=== PATIENT | female | born 1995 | race Caucasian/White ===

== ENCOUNTER 2018-04-11 02:14 | Inpatient (IN) | payer BC ==
[2018-04-11] MEDS ORDERED: SODIUM CHLORIDE 0.9% 1,000 ML IV ONE (02:26)
[2018-04-11] MEDS ORDERED: ACETAMINOPHEN TAB 500 MG TAB PO STA (02:26)
[2018-04-11] MEDS ORDERED: NALOXONE 0.4 MG/ML 1 ML VIAL IV PRN (02:52)
[2018-04-11] MEDS ORDERED: AZITHROMYCIN 500 MG in SODIUM CHLORIDE 0.9% 250 ML IVPB STA (02:56)
[2018-04-11] MEDS: ACETAMINOPHEN TAB 325 MG TAB PO PRN ×3 (03:01→17:16)
--- NOTE | 2018-04-11 03:01 | ED ---
General Adult HPI - General Chief complaint: Chest Pain Stated complaint: Chest pain Time Seen by Provider: 04/11/18 02:16 Source: patient, RN notes reviewed, old records reviewed Mode of arrival: EMS Limitations: no limitations - History of Present Illness Initial comments: 22-year-old female transferred from [place] with left-sided chest pain and dyspnea. Patient states that she developed the symptoms earlier in the day. Describes the pain is sharp in nature. She does have remote history of exercise -induced asthma. No other significant health history. She has a family history of a brother with a abnormal heart valve requiring replacement. Patient denies cough. She denies URI symptoms. She has had subjective fever and chills. No nausea vomiting or diarrhea. No dysuria. - Related Data Allergies Allergy/AdvReac Type Severity Reaction Status Date / Time No Known Allergies Allergy Verified 04/11/18 02:22 Review of Systems ROS Statement: Those systems with pertinent positive or pertinent negative responses have been documented in the HPI. ROS Other: All systems not noted in ROS Statement are negative. Past Medical History Additional Past Medical History / Comment(s): seasonal allergies. History of Any Multi-Drug Resistant Organisms: None Reported Past Surgical History: No Surgical Hx Reported Past Psychological History: No Psychological Hx Reported Smoking Status: Never smoker Past Alcohol Use History: None Reported Past Drug Use History: None Reported General Exam Limitations: no limitations General appearance: alert, in no apparent distress Head exam: Present: atraumatic, normocephalic Eye exam: Present: normal appearance, PERRL, EOMI ENT exam: Present: normal exam Neck exam: Present: normal inspection. Absent: tenderness, meningismus Respiratory exam: Present: normal lung sounds bilaterally. Absent: respiratory distress, wheezes Cardiovascular Exam: Present: normal rhythm, tachycardia GI/Abdominal exam: Present: soft. Absent: distended, tenderness Extremities exam: Present: normal inspection, normal capillary refill. Absent: pedal edema, calf tenderness Neurological exam: Present: alert, oriented X3, CN II-XII intact. Absent: motor sensory deficit Psychiatric exam: Present: normal affect, normal mood Skin exam: Present: warm, dry, intact. Absent: cyanosis, diaphoretic Course Vital Signs 04/11/18 02:16 Temperature 102.3 F H Pulse Rate 121 H Respiratory 28 H Rate Blood Pressure 127/60 O2 Sat by Pulse 95 Oximetry EKG Findings - EKG Comments: EKG Findings:: EKG: Sinus tachycardia, possible left atrial enlargement, RSR prime suggestive of right ventricular conduction delay. Rate of 121 ND interval 142, QRS duration 90, QTC 468 Medical Decision Making - Medical Decision Making 22-year-old female transferred for chest pain. This may be related to infectious process, although chest x-ray and CT is negative for focal pneumonia. Blood cultures and urine culture were obtained prior to transfer. Patient was given Rocephin. A azithromycin will be given in the emergency department. Laboratory studies were reviewed, she had an elevated white blood cell count at 13.8, hemoglobin was 14.3 which is stable. CTA showed no central PE, although there was suboptimal contrast and peripheral PE has not been evaluated. Electrolytes are within normal limits. Echo will be obtained. Case discussed with Dr. Sanchez who will accept admission. Repeat laboratory studies are pending. Disposition Clinical Impression: SIRS (systemic inflammatory response syndrome), Chest pain Disposition: ADMITTED IP TO THIS HOSP Condition: Stable Is patient prescribed a controlled substance at d/c from ED?: No Referrals: Nithin Torres MD [Primary Care Provider] - 1-2 days Decision to Admit Reason: Admit from EC Decision Date: 04/11/18 Decision Time: 03:10
[2018-04-11] MEDS: 0.9% NACL WITH KCL 20 MEQ/L 1,000 ML IV SCH ×2 (03:40→18:48)
[2018-04-11] MEDS ORDERED: HYDROcodone/APAP 5-325MG 1 EACH TAB PO PRN (03:56)
[2018-04-11] MEDS ORDERED: ONDANSETRON 4 MG/2 ML VIAL IVP PRN (03:56)
[2018-04-11] MEDS ORDERED: MELATONIN 3 MG TABLET PO PRN (03:56)
[2018-04-11] MEDS ORDERED: MORPHINE ORAL SOLN 10 MG/5 ML CUP PO PRN (03:56)
[2018-04-11] MEDS ORDERED: CALCIUM CARBONATE 500 MG CHEWABLE PO PRN (03:56)
--- NOTE | 2018-04-11 04:07 | P.HPIM ---
History of Present Illness H&P Date: 04/11/18 Chief Complaint: chest pain Patient is a 22-year-old female past medical history of nasal ALLERGIES and childhood exercise-induced asthma who initially presented to [facility] after experiencing sudden onset of left-sided chest pain. At [facility] underwent an extensive evaluation. Initially on arrival her vital signs were within normal limits other than a pulse of 102. During evaluation there she did spike a fever 102. Her initial EKG showed sinus tachycardia at rate of 110 with RSR prime in V1 and V2. Initial laboratory analysis showed a white blood cell count of 13.8, hemoglobin 14.3, hematocrit 42.1, platelets of 363. Her chemistry showed sodium of 133, potassium 4, chloride of 101, CO2 of 24 Bielen of 11, and creatinine 0.9. Her liver enzymes are within normal limits. D-dimer was positive at 418. Initial troponin and CPK were negative. Urinalysis showed ketones and white blood cells 25-50. She underwent a CTA of the chest which was a suboptimal bolus to evaluate for peripheral PE but was otherwise unremarkable. She got a dose of IV Toradol and Xopenex which are resolved her abdominal pain and eased her chest pain. She then received 4 of morphine 324 mg of aspirin and a GI cocktail but continued to have pain. She has a history of a brother with congenital aortic stenosis requiring 3 aortic valve replacement. There is concern for possible cardiac etiology and they requested transfer here. Arrival [facility] [place] she is on have a temperature of 102.3 with a pulse of 121 and respirations of 28. EKG was repeated which showed sinus tachycardia at a rate of 121 and then with an RSR prime. Patient seen and examined at bedside in the ER. She states that she was sitting at the wrist fails this afternoon developed sudden onset left-sided chest pain that radiated to the [facility] chest. This was associated with shortness of breath, nausea, and palpitations. She felt cold all over but did not become diaphoretic. She does not feel lightheaded, she had no numbness or tingling. She has been suffering from a stuffy nose. She also is having menstrual cramps this afternoon which resolved after receiving Toradol at [place]. She is on her menstrual cycle. She denies anything unusual such as moving heavy objects or starting a new exercise regimen. She has not started or stopped taking any medications recently. She reports a headache that started after arriving to the ER. She's had no recent sick contacts. She has had increased urination but no dysuria. She states she did have an episode of chest pain in November and sought medical attention in [place] where she goes to school. At that time she had an EKG which was normal. She denies any vomiting, diarrhea, constipation. She is not coughing. She denies any unusual rashes or lesions. Her chest pain is reproducible with palpation to the anterior chest wall. Patient reports that they are renovating her kitchen at home. They have been dry walling and sanding the last few days.There has been no exposure to meldew or mold as they have not torn down old structures. Review of Systems Positive: + Chest pain, + shortness of breath, + nausea, + palpitations Pertinent positives and negatives as discussed in HPI, a complete review of systems was performed and all other systems are negative. Past Medical History Additional Past Medical History / Comment(s): seasonal allergies. Childhood exercise induced asthma History of Any Multi-Drug Resistant Organisms: None Reported Past Surgical History: No Surgical Hx Reported Past Psychological History: No Psychological Hx Reported Smoking Status: Never smoker Past Alcohol Use History: None Reported Past Drug Use History: None Reported - Past Family History Brother(s) Additional Family Medical History / Comment(s): congential aortic stenosis with aortic valve replacement X 3 Father Family Medical History: Diabetes Mellitus Medications and Allergies Allergies Allergy/AdvReac Type Severity Reaction Status Date / Time No Known Allergies Allergy Verified 04/11/18 02:22 Physical Exam Osteopathic Statement: *. No significant issues noted on an osteopathic structural exam other than those noted in the History and Physical/Consult. Vitals: Vital Signs Temp Pulse Resp BP Pulse Ox 04/11/18 03:43 100.9 F H 103 H 20 95/55 96 04/11/18 02:16 102.3 F H 121 H 28 H 127/60 95 Intake and Output 04/10/18 04/10/18 04/11/18 14:59 22:59 06:59 Other: Weight 65.771 kg General: Ill appearing, mild distress, appears at stated age, normal weight Derm: no unusual rashes/lesions no unusual ecchymoses, warm, moist Head: atraumatic, normocephalic, symmetric Eyes: EOMI, no lid lag, anicteric sclera, pupils equal round reactive to light ENT: Nose and ears atraumatic, no thrush, no pharyngeal erythema Neck: No thyromegaly, no cervical lymphadenopathy, trachea midline, supple Mouth: no lip lesion, mucus membranes moist Cardiovascular: S1 and S2 tachycardic, no murmur, positive posterior tibial pulse bilateral, no edema, capillary refill less than 2 seconds Lungs: Decreased breath sounds bilaterally, no wheeze, no rhonchi, no rales , no accessory muscle use Abdominal: soft, nontender to palpation, no guarding, no appreciable organomegaly, normal bowel sounds Ext: no gross muscle atrophy, muscle strength 5 out of 5 in upper extremities grossly, grossly intact in lower extremities, no contractures, Neuro: CN II-XI grossly intact, light touch intact all 4 extremities, finger to nose within normal limits, Psych: Alert, oriented, appropriate affect Results Comments: EKG is reviewed by myself revealed sinus tachycardia at a rate of 121, normal access, WA of 142, QRS 90, QTc of 468 she does have an RSR prime in V1 and V2 and aVL, there is nonspecific ST-T wave changes. CT scan - chest: report reviewed Thrombosis Risk Factor Assmnt - DVT/VTE Prophylaxis DVT/VTE Prophylaxis: Low risk, early ambulation encouraged Assessment and Plan Assessment: Systemic inflammatory response syndrome-fever 102.3, heart rate 121, respiratory rate 28 -Repeat urinalysis -Repeat blood cultures, inital set drawn before ABX at [facility] -IV fluids -CT chest without definitive source -Warrants monitoring for development of sepsis, concern for possible viral infection including pericarditis, myocarditis, influenza, URI - Repeat CXR in am after fluids to rule out pneumonia, received 1 gram of rocephin ([facility]) and zithromax in the ED Chest pain - likely costochondiritis, however with family history of congenital aortic stenosis and abnormal EKG warrants monitoring - echo in AM - cardio consult - I do not see an indication to emergently repeat CTA of chest but if further work-up for PE is warrented could consider echo + venous dopplers +/- VQ scan. Wells criteria 1.5 seasonal allergies - claritin Surrogate decision-maker: Mother CODE STATUS:Full DVT prophylaxis: early ambulation Discussed with: Patient, family, ED physician Anticipated discharge: 24-[address]: home A total of 65 minutes was spent on the care of this complex patient more than 50 % of the time was spent in counseling and care coordination.
[2018-04-11 04:21] VITALS: BMI 22.4
[2018-04-11 05:06] LABS: Appearance,Urine Clear (Clear); Bilirubin,Urine Negative (Negative); Blood,Urine Trace (Negative); Color,Urine Yellow; Glucose,Urine (UA) Negative (Negative); Ketones,Urine 2+ (Negative); Leukocyte Esterase,Urine Moderate (Negative); Nitrite,Urine Negative (Negative); Protein,Urine Trace (Negative); RBC,Urine 3 /hpf (0-5); Specific Gravity,Urine >1.050 (1.001-1.035); Squamous Epithelial Cell,Urine 2 /hpf (0-4); Urobilinogen,Urine <2.0 mg/dL (<2.0); WBC,Urine 18 /hpf (0-5)
[2018-04-11 05:16] LABS: Basophils % (A) 0 %; Eosinophils # (A) 0.2 k/uL (0-0.7); Eosinophils % (A) 2 %; HCT 30.2 % (34.0-46.0); HGB 10.1 gm/dL (11.4-16.0); Lymphocytes # (A) 0.9 k/uL (1.0-4.8); Lymphocytes % (A) 6 %; MCH 27.9 pg (25.0-35.0); MCHC 33.5 g/dL (31.0-37.0); MCV 83.5 fL (80.0-100.0); Mean Platelet Volume 6.5; Monocytes # (A) 0.5 k/uL (0-1.0); Monocytes % (A) 4 %; Neutrophils # (A) 12.3 k/uL (1.3-7.7); Neutrophils % (A) 88 %; Platelet Count 220 k/uL (150-450); RBC 3.62 m/uL (3.80-5.40); RDW 12.8 % (11.5-15.5)
[2018-04-11 05:24] LABS: ALT 26 U/L (9-52); AST 12 U/L (14-36); Albumin 2.8 g/dL (3.5-5.0); Alkaline Phosphatase 50 U/L (38-126); Anion Gap 12 mmol/L; Blood Urea Nitrogen 10 mg/dL (7-17); Carbon Dioxide 18 mmol/L (22-30); Chloride 108 mmol/L (98-107); Glucose 79 mg/dL (74-99); Potassium 3.7 mmol/L (3.5-5.1); Sodium 138 mmol/L (137-145); Total Bilirubin 0.5 mg/dL (0.2-1.3); Total Protein 5.4 g/dL (6.3-8.2)
--- NOTE | 2018-04-11 10:30 | XR ---
EXAMINATION TYPE: XR chest 1V portable DATE OF EXAM: 04/11/2018 COMPARISON: CT chest 04/10/2018 HISTORY: Pneumonia TECHNIQUE: Single frontal view of the chest is obtained. FINDINGS: There is no focal air space opacity, pleural effusion, or pneumothorax seen. The cardiac silhouette size is within normal limits. There are overlying cardiac leads. The osseous structures are intact. IMPRESSION: No acute process.
--- NOTE | 2018-04-11 11:51 | P.CRDCN ---
History of Present Illness Consult date: 04/11/18 Requesting physician: Beth Sanchez Consult reason: chest pain Chief complaint: Chest pain History of present illness: This is a pleasant 22-year-old female with history of childhood exercise-induced asthma, nonsmoker, no alcohol use, who was transferred here from [facility], patient presented there with symptoms of fairly sudden onset of left-sided chest pain, patient states that initially the pain would worsen if she would take a deep breath, or if she would press on the chest wall. She continues to have some discomfort this morning that she is rating at about a 5, she does state that if she palpates the chest is significantly worse. Patient did have a temperature at [facility] of 102, her initial EKG showed a sinus tachycardia with heart rate of 110. Initial white blood cell count 13.8, hemoglobin 14.3, hematocrit 42.1, platelets 363. Sodium 133, potassium 4, chloride 101, CO2 24, BUN 11, creatinine 0.9. Liver enzymes within normal limits, d-dimer was positive at 418 , initial troponin negative. She didn't undergo a CTA of the chest which was a suboptimal bolus to evaluate for PE but otherwise unremarkable. Patient does have a history of a brother with congenital aortic stenosis requiring 3 aortic valve replacements. Quadrant to the patient, she has had a stuffy nose recently but denies any fever or chills at home. Denies any recent contact with anyone who has been sick. Chest x-ray here did not reveal any acute process. Temperature 102.3 on arrival here. Blood pressure 126/60 with a heart rate of 120 at that time 95% on room air. Heart rate this morning in the low 100s, 95/55 blood pressure. Currently afebrile. White blood cell count 14 , hemoglobin 10, platelet count 220. Sodium 138, potassium 3.7, BUN 10, creatinine 0.8. Troponin 0.012. Influenza A and B are negative. At the time of my examination this morning, patient does complain of some mild chest discomfort, increases in severity on palpation of the chest wall. Past Medical History Additional Past Medical History / Comment(s): seasonal allergies. Childhood exercise induced asthma History of Any Multi-Drug Resistant Organisms: None Reported Past Surgical History: No Surgical Hx Reported Past Psychological History: No Psychological Hx Reported Smoking Status: Never smoker Past Alcohol Use History: None Reported Past Drug Use History: None Reported - Past Family History Brother(s) Additional Family Medical History / Comment(s): congential aortic stenosis with aortic valve replacement X 3 Father Family Medical History: Diabetes Mellitus Medications and Allergies Home Medications Medication Instructions Recorded Confirmed Type Fluticasone Nasal [place] [Flonase 1 spray EA NOSTRIL DAILY 04/11/18 04/11/18 History Nasal [place]] Norgestimate-Ethinyl Estradiol 1 tab PO DAILY 04/11/18 04/11/18 History [Tri-Sprintec Tablet] Allergies Allergy/AdvReac Type Severity Reaction Status Date / Time No Known Allergies Allergy Verified 04/11/18 08:08 Physical Exam Vitals: Vital Signs Temp Pulse Pulse Resp BP BP Pulse Ox 04/11/18 11:25 98.3 F 99 16 97/53 100 04/11/18 08:45 98.0 F 103 H 18 99/56 96 04/11/18 04:15 98.1 F 105 H 18 95/55 97 04/11/18 03:43 100.9 F H 103 H 20 95/55 96 04/11/18 02:16 102.3 F H 121 H 28 H 127/60 95 Intake and Output 04/10/18 04/11/18 04/11/18 22:59 06:59 14:59 Intake Total 75 Output Total 500 Balance -425 Intake: Intake, IV Titration 75 Amount 0.9% NaCl with KCl 20 Meq 75 /l 1,000 ml @ 75 mls/hr IV .[id number] [facility] Rx#: [id number] Output: Urine 500 Other: Weight 66.7 kg PHYSICAL EXAMINATION: HEENT: Head is atraumatic, normocephalic. Pupils equal, round. Neck is supple. There is no elevated jugular venous pressure. HEART EXAMINATION: Heart S1, S2 normal. No murmur or gallop heard. CHEST EXAMINATION: Lungs are clear to auscultation and precussion. Positive chest wall tenderness is noted on palpation and with deep breathing. ABDOMEN: Soft, nontender. Bowel sounds are heard. No organomegaly noted. EXTREMITIES: 2+ peripheral pulses with no evidence of peripheral edema and no calf tenderness noted. NEUROLOGIC patient is awake, alert and oriented -3. . Results 04/11/18 05:01 04/11/18 05:01 Cardiac Enzymes 04/11/18 04/11/18 Range/Units 05:01 05:01 AST 12 L (14-36) U/L Troponin I <0.012 (0.000-0.034) ng/mL CBC 04/11/18 Range/Units 05:01 WBC 14.0 H (4.0-11.0) k/uL RBC 3.62 L (3.80-5.40) m/uL Hgb 10.1 L (11.4-16.0) gm/dL Hct 30.2 L (34.0-46.0) % Plt Count 220 (150-450) k/uL Comprehensive Metabolic Panel 04/11/18 Range/Units 05:01 Sodium 138 (137-145) mmol/L Potassium 3.7 (3.5-5.1) mmol/L Chloride 108 H (98-107) mmol/L Carbon Dioxide 18 L (22-30) mmol/L BUN 10 (7-17) mg/dL Creatinine 0.80 (0.52-1.04) mg/dL Glucose 79 (74-99) mg/dL Calcium 8.0 L (8.4-10.2) mg/dL AST 12 L (14-36) U/L ALT 26 (9-52) U/L Alkaline Phosphatase 50 (38-126) U/L Total Protein 5.4 L (6.3-8.2) g/dL Albumin 2.8 L (3.5-5.0) g/dL Current Medications Generic Name Dose Route Start Last Admin Trade Name Freq PRN Reason Stop Dose Admin Acetaminophen 650 mg 04/11/18 02:52 04/11/18 11:29 Tylenol Tab PO 650 mg Q6HR PRN Administration Mild Pain or Fever > 100.5 Hydrocodone Bitart/Acetaminophen 1 each 04/11/18 03:56 Peyton 5-325 PO Q4HR PRN Moderate Pain Calcium Carbonate/Glycine 1,000 mg 04/11/18 03:56 Tums PO Q4HR PRN Dyspepsia Potassium Chloride/Sodium Chloride 1,000 mls @ 75 mls/hr 04/11/18 03:00 04/11 03:40 Ns-Kcl 20 Meq/L Iv Solution IV 75 mls/hr .[id number] ROSHAN Administration Ketorolac Tromethamine 30 mg 04/11/18 03:56 Toradol IVP 04/16/18 03:57 Q6HR PRN Moderate Pain Melatonin 3 mg 04/11/18 03:56 Melatonin PO HS PRN Insomnia Morphine Sulfate 4 mg 04/11/18 03:56 Morphine Oral Daniela 2mg/Ml PO Q4HR PRN Severe Pain Naloxone HCl 0.2 mg 04/11/18 02:52 Narcan IV Q2M PRN Opioid Reversal Ondansetron HCl 4 mg 04/11/18 03:56 Zofran IVP Q8HR PRN Nausea And Vomiting Intake and Output 04/10/18 04/11/18 04/11/18 22:59 06:59 14:59 Intake Total 75 Output Total 500 Balance -425 Intake: Intake, IV Titration 75 Amount 0.9% NaCl with KCl 20 Meq 75 /l 1,000 ml @ 75 mls/hr IV .[id number] [facility] Rx#: [id number] Output: Urine 500 Other: Weight 66.7 kg 04/11/18 05:01 04/11/18 05:01 EKG Interpretations (text) EKG shows a sinus tachycardia with nonspecific ST-T wave changes. Assessment and Plan Plan: Assessment and plan #1 symptoms of left-sided chest discomfort, atypical for acute coronary syndrome , somewhat pleuritic in nature, rule out possible myocarditis. CTA of the chest inconclusive for PE #2 sepsis, temperature 102.3, blood cultures have been ordered, patient currently on IV antibiotics. Rule out possible viral illness. #3 exercise-induced asthma as a child Plan We will obtain CRP and sed rate, as well as thyroid level. Obtain echocardiogram with Doppler study. Further recommendations to follow. DNP note has been reviewed, I agree with a documented findings and plan of care. Patient was seen and examined.
--- NOTE | 2018-04-11 12:28 | ECHOF ---
Referral Reason:Rosa Maria MEASUREMENTS -------- HEIGHT: 172.7 cm WEIGHT: 65.8 kg BP: 95/55 RVIDd: 2.1 cm (< 3.3) IVSd: 0.7 cm (0.6 - 1.1) LVIDd: 3.8 cm (3.9 - 5.3) LVPWd: 0.8 cm (0.6 - 1.1) IVSs: 1.4 cm LVIDs: 2.6 cm LVPWs: 1.4 cm LA Diam: 2.7 cm (2.7 - 3.8) Ao Diam: 2.6 cm (2.0 - 3.7) AV Cusp: 2.4 cm (1.5 - 2.6) MV EXCURSION: 20.564 mm (> 18.000) MV EF SLOPE: 67 mm/s (70 - 150) EPSS: 0.3 cm MV E Leo: 1.02 m/s MV DecT: 177 ms MV A Leo: 0.70 m/s MV E/A Ratio: 1.46 RAP: 5.00 mmHg RVSP: 27.00 mmHg FINDINGS -------- Sinus rhythm. This was a technically good study. The left ventricular size is normal. Left ventricular wall thickness is normal. Overall left vent ricular systolic function is normal with, an EF between 55 - 60 %. The right ventricle is normal in size. The left atrial size is normal. The right atrium is normal in size. The aortic valve is trileaflet and appears structurally normal. The mitral valve is normal. Mild mitral regurgitation is present. Mild tricuspid regurgitation present. Right ventricular systolic pressure is normal at < 35 mmHg. Trace/mild (physiologic) pulmonic regurgitation. The aortic root size is normal. Normal inferior vena cava with normal inspiratory collapse consistent with estimated right atrial pre ssure of 5 mmHg. The inferior vena cava is mildly dilated. There is no pericardial effusion. CONCLUSIONS -------- 1. Sinus rhythm. 2. This was a technically good study. 3. The left ventricular size is normal. 4. Left ventricular wall thickness is normal. 5. Overall left ventricular systolic function is normal with, an EF between 55 - 60 %. 6. The left atrial size is normal. 7. The aortic valve is trileaflet and appears structurally normal. 8. The mitral valve is normal. 9. Mild mitral regurgitation is present. 10. Mild tricuspid regurgitation present. 11. Right ventricular systolic pressure is normal at < 35 mmHg. 12. Trace/mild (physiologic) pulmonic regurgitation. 13. The aortic root size is normal. 14. Normal inferior vena cava with normal inspiratory collapse consistent with estimated right atrial pressure of 5 mmHg. 15. The inferior vena cava is mildly dilated. 16. There is no pericardial effusion. CLINICAL LAB SPECIALIST: Liv Yarbrough RDCS
[2018-04-11 12:33] LABS: C Reactive Protein 70.6 mg/L (<10.0)
[2018-04-11] MEDS ORDERED: RX INFO: IV CONTRAST WAS GIVEN 1 EACH MISC MISCELLANE PRN (17:54)
[2018-04-11] MEDS: AMPICILLIN-SULBACTAM 3 GM in SODIUM CHLORIDE 0.9% 100 ML IVPB SCH ×2 (18:47→23:00)
[2018-04-12] MEDS: 0.9% NACL WITH KCL 20 MEQ/L 1,000 ML IV SCH ×2 (05:16→19:28)
[2018-04-12] MEDS: AMPICILLIN-SULBACTAM 3 GM in SODIUM CHLORIDE 0.9% 100 ML IVPB SCH ×4 (05:16→23:01)
[2018-04-12 06:21] LABS: Basophils % (A) 0 %; Eosinophils % (A) 0 %; HCT 29.6 % (34.0-46.0); HGB 9.7 gm/dL (11.4-16.0); Lymphocytes # (A) 1.2 k/uL (1.0-4.8); Lymphocytes % (A) 7 %; MCH 27.9 pg (25.0-35.0); MCHC 32.8 g/dL (31.0-37.0); MCV 85.1 fL (80.0-100.0); Mean Platelet Volume 6.7; Monocytes # (A) 0.9 k/uL (0-1.0); Monocytes % (A) 5 %; Neutrophils # (A) 15.1 k/uL (1.3-7.7); Neutrophils % (A) 86 %; Platelet Count 192 k/uL (150-450); RBC 3.48 m/uL (3.80-5.40); RDW 12.9 % (11.5-15.5); WBC 17.5 k/uL (4.0-11.0)
[2018-04-12 06:23] LABS: INR 1.2 (<1.2); Prothrombin Time 11.2 sec (9.0-12.0)
[2018-04-12 06:26] LABS: ALT 25 U/L (9-52); AST 13 U/L (14-36); Albumin 2.7 g/dL (3.5-5.0); Alkaline Phosphatase 51 U/L (38-126); Anion Gap 12 mmol/L; Blood Urea Nitrogen 7 mg/dL (7-17); Calcium 8.2 mg/dL (8.4-10.2); Carbon Dioxide 18 mmol/L (22-30); Chloride 105 mmol/L (98-107); Glucose 86 mg/dL (74-99); Magnesium 1.7 mg/dL (1.6-2.3); Potassium 4.1 mmol/L (3.5-5.1); Sodium 135 mmol/L (137-145); Total Bilirubin 0.4 mg/dL (0.2-1.3); Total Protein 5.2 g/dL (6.3-8.2)
[2018-04-12 07:05] LABS: C Reactive Protein 227.9 mg/L (<10.0)
[2018-04-12] MEDS: KETOROLAC 30 MG/ML 1 ML VIAL IVP PRN ×2 (07:07→13:28)
[2018-04-12] MEDS: IOPAMIDOL-300 CONTRAST 30 ML VIAL (ORAL USE) PO PRN ×2 (08:02→09:06)
--- NOTE | 2018-04-12 10:13 | CT ---
EXAMINATION TYPE: CT abdomen pelvis w con DATE OF EXAM: 04/12/2018 COMPARISON: NONE HISTORY: 22-year-old female Fever of unknown origin. SIRS, Community acquired pneumonia TECHNIQUE: Contiguous axial scanning of the abdomen and pelvis following administration of 100 ml Iso jorge luis 300 IV contrast. Delayed images through the kidneys and coronal/sagittal reconstructions perform ed. CT DLP: 451.30 mGycm Automated exposure control for dose reduction was used. FINDINGS: Heart normal size with trace anterior basilar pericardial fluid. Some patchy atelectasis posterior celestine ng bases. Small amount of focal fat along the anterior fossa ligament. Otherwise, no focal liver lesion or bili baldo ductal dilatation. Gallbladder, adrenal glands, right kidney, spleen with anterior and inferior splenules, and pancreas show no gross abnormality. There is patchy hypoenhancement along the upper pole of the left kidney with an ill-defined 1.3 cm fo antonio area of hypodensity interposed within. Surrounding fat stranding and mild tracking edema along th e perinephric space. Smaller patch of hypoenhancement posterior lower pole left kidney. Mild left-jefry ed pelvicaliectasis probably transient. No significant delay in excretion of contrast from the left k idney. No dilated small bowel, free fluid, or free air. Normal appendix. Oral contrast progressed to the mid transverse colon. No pericolonic inflammatory ch rashid. There is moderate pelvic free fluid. Uterus is present. The region of both ovaries is visualized but they are not well delineated. Moderate stool in the rectum. Bones: No osseous destructive process. IMPRESSION: 1. CT FINDINGS MOST COMPATIBLE WITH LEFT-SIDED PYELONEPHRITIS. THERE IS AN EARLY DEVELOPING 1.3 CM UP PER POLE RENAL ABSCESS. THIS IS POORLY DEFINED AT THIS TIME. NO DRAINABLE FLUID COLLECTION. 2. MODERATE PELVIC FREE FLUID MAY BE PHYSIOLOGIC. SOME OF THIS FLUID MAY BE TRACKING DOWN FROM THE IN FLAMMATION HIGHER UP IN THE ABDOMEN. IF CLINICALLY INDICATED, PELVIC ULTRASOUND COULD PROVIDE BETTER ASSESSMENT OF THE OVARIES AND ADNEXAL STRUCTURES.
--- NOTE | 2018-04-12 11:13 | P.PN ---
Subjective Progress Note Date: 04/12/18 Principal diagnosis: Fever and chills Overnight patient describes having some chills. Denies any dysuria no hematuria. Has been tolerating oral. Objective - Vital Signs Vital signs: Vital Signs Temp 98.8 F 04/12/18 08:00 Pulse 130 H 04/12/18 08:00 Resp 16 04/12/18 08:00 BP 104/58 04/12/18 08:00 Pulse Ox 97 04/12/18 08:00 Intake & Output 04/11/18 04/12/18 04/12/18 18:59 06:59 18:59 Intake Total 969 475 75 Balance 969 475 75 Intake: Intake, IV Titration 525 475 75 Amount 0.9% NaCl with KCl 20 Meq 525 375 75 /l 1,000 ml @ 75 mls/hr IV .[id number] [facility] Rx#: [id number] Ampicillin-Sulbactam 3 gm 100 In Sodium Chloride 0.9% 100 ml @ 100 mls/hr IVPB Q6HR [facility] Rx#:[id number] Oral 444 Other: # Voids 2 1 - Exam gen:alert and oriented lungs:clear to auscultation heart:s1s2 abdomen:soft and depressible,non tender ext:no edema Left sided costovertebral tenderness - Labs CBC & Chem 7: 04/12/18 05:52 04/12/18 05:52 Labs: Abnormal Lab Results - Last 24 Hours (Table) 04/11/18 04/11/18 04/12/18 Range/Units 05:01 05:01 05:52 WBC 17.5 H (4.0-11.0) k/uL RBC 3.48 L (3.80-5.40) m/uL Hgb 9.7 L (11.4-16.0) gm/dL Hct 29.6 L (34.0-46.0) % Neutrophils # 15.1 H (1.3-7.7) k/uL ESR 28 H (0-20) mm/hr INR (<1.2) Sodium (137-145) mmol/L Carbon Dioxide (22-30) mmol/L Calcium (8.4-10.2) mg/dL AST (14-36) U/L C-Reactive Protein 70.6 H (<10.0) mg/L Total Protein (6.3-8.2) g/dL Albumin (3.5-5.0) g/dL 04/12/18 04/12/18 Range/Units 05:52 05:52 WBC (4.0-11.0) k/uL RBC (3.80-5.40) m/uL Hgb (11.4-16.0) gm/dL Hct (34.0-46.0) % Neutrophils # (1.3-7.7) k/uL ESR (0-20) mm/hr INR 1.2 H (<1.2) Sodium 135 L (137-145) mmol/L Carbon Dioxide 18 L (22-30) mmol/L Calcium 8.2 L (8.4-10.2) mg/dL AST 13 L (14-36) U/L C-Reactive Protein 227.9 H (<10.0) mg/L Total Protein 5.2 L (6.3-8.2) g/dL Albumin 2.7 L (3.5-5.0) g/dL Microbiology - Last 24 Hours (Table) 04/11/18 05:01 Blood Culture - Preliminary Blood No Growth after 24 hours Assessment and Plan (1) Pyelonephritis Narrative/Plan: As evidenced on the computed tomography scan Continue Unasyn Infectious disease following Clinically patient is a little better Current Visit: Yes Status: Acute Code(s): N12 - TUBULO-INTERSTITIAL NEPHRITIS, NOT SPCF ACUTE OR CHRONIC SNOMED Code(s): 24659206 (2) SIRS (systemic inflammatory response syndrome) Narrative/Plan: Improved Continue IV fluids and and antibiotics White count course Current Visit: Yes Status: Acute Code(s): R65.10 - SIRS OF NON-INFECTIOUS ORIGIN W/O ACUTE ORGAN DYSFUNCTION SNOMED Code(s): 186673766 (3) Chest pain Narrative/Plan: Most likely costochondritis and has improved Current Visit: Yes Status: Acute Code(s): R07.9 - CHEST PAIN, UNSPECIFIED SNOMED Code(s): 29456249
--- NOTE | 2018-04-12 16:04 | CONS ---
CONSULTATION DATE OF SERVICE: 04/12/2018 REASON FOR CONSULTATION: Sepsis. HISTORY OF PRESENT ILLNESS: The patient is a 22-year-old female otherwise healthy who started feeling sick with some left-sided chest pain, shortness of breath, for which the patient went to [facility]. The patient was subsequently transferred to [facility] for further evaluation. The patient was also having some left-sided flank pain off and on for about a week. Pain was described to be more of a sharp nature, 5 to 6 out of 10, and no radiation. The patient denied significant burning or frequency of urine. The patient did have some rigors and chills. With this symptomatology, patient was evaluated by the ER physician. The patient did have a chest x-ray which was negative for any acute process. An echocardiogram has been done. The patient did have elevated white count of 14,000. UA was positive with moderate leukocyte esterase with 15 WBCs. Influenza serology was negative. With concern about possible sepsis from an abdominal source, CT of the abdomen and pelvis was requested on discussion of the case with the admitting physician yesterday. The patient CT abd/pelvis this morning was suspicious for left-sided pyelonephritis and early developing 1.3 cm upper pole renal abscess, poorly defined at this time, and no drainable fluid collection; and moderate free fluid may be physiologic. The patient at the time of my evaluation this morning has been afebrile; she did have a fever of 102.3 Fahrenheit on admission. Last fever yesterday evening of 100.8. Patient states she is feeling better today; her breathing has improved. No chest pain. No complaint of abdominal pain. Still some pain in the left flank area but no burning frequency of urine. No diarrhea. REVIEW OF SYSTEMS: CONSTITUTIONAL: Positive for weakness along with fever. EYES: No complaint. ENT: No complaint. RESPIRATORY: As per HPI. CARDIOVASCULAR: No complaint. GENITOURINARY: As per HPI. GASTROINTESTINAL: As per HPI. MUSCULOSKELETAL: No complaint. INTEGUMENTARY: No complaint. PSYCHOLOGICAL: No complaint. ENDOCRINE: No complaint. NEUROLOGICAL: No complaint. PAST MEDICAL HISTORY: Seasonal allergies. No other medical problem. PAST SURGERY HISTORY: No surgeries. SOCIAL HISTORY: No smoking, drinking or drug use. FAMILY HISTORY: No pertinent findings noted. ALLERGIES: NO KNOWN DRUG ALLERGIES. CURRENT MEDICATIONS: 1. Tylenol. 2. [place]. 3. Unasyn 3 grams q.6. 4. Tums. 5. Toradol. 6. Melatonin. 7. Morphine. 8. Narcan. 9. Zofran. PHYSICAL EXAMINATION: Blood pressure is 102/55, pulse of 94, temperature 98.8, T-max 100.8. She is 99 % on room air. General description is a young female lying in bed in no distress. No tachypnea or accessory muscle of respiration use. HEENT examination shows slight pallor. No scleral icterus. Oral mucosa membrane is moist. No pharyngeal erythema or thrush. NECK: Trachea is central. No thyromegaly. LUNGS: Unlabored breathing. Clear to auscultation anteriorly. No wheeze or crackle. HEART: S1, S2. Regular rate and rhythm. No added sound. ABDOMEN: Soft. She did have mild left flank tenderness. No guarding or rigidity. No organomegaly. EXTREMITIES: No edema of feet. SKIN EXAMINATION: No rashes or masses palpable. Neurologically the patient is awake, alert, oriented x3. Mood and affect normal. LABS: Hemoglobin 9.7, white count 17.5, BUN of 7, creatinine 0.70. Urine positive with moderate leukocyte esterase with 18 WBCs. Cultures currently pending. DIAGNOSTIC IMPRESSION AND PLAN: Patient with sepsis in a patient who did have fever of 102 degrees Fahrenheit. The patient did have tachycardia, positive UA. Source is likely left-sided pyelonephritis, likely from enteric Gram-negative pathogen in a patient who has already been on antibiotic. Unfortunately no urine cultures were done. CT is suspicious for early abscess formation but no drainable fluid collection. PLAN: 1. I recommend keeping the patient on IV Unasyn for at least another 24 to 48 hours. 2. Will see if the lab can do a set of urine cultures on the UA that was submitted from the ER. 3. Depending on the clinical response as well as cultures, will further adjust medication if needed. Plan of care discussed in detail with the admitting physician as well as the mother, present at bedside. MMODL / IJN: [id number] / MTDD
--- NOTE | 2018-04-12 16:19 | P.PN ---
Subjective Progress Note Date: 04/12/18 This is a pleasant 22-year-old female with history of childhood exercise-induced asthma, nonsmoker, no alcohol use, who was transferred here from [facility], patient presented there with symptoms of fairly sudden onset of left-sided chest pain, patient states that initially the pain would worsen if she would take a deep breath, or if she would press on the chest wall. She continues to have some discomfort this morning that she is rating at about a 5, she does state that if she palpates the chest is significantly worse. Patient did have a temperature at [facility] of 102, her initial EKG showed a sinus tachycardia with heart rate of 110. Initial white blood cell count 13.8, hemoglobin 14.3, hematocrit 42.1, platelets 363. Sodium 133, potassium 4, chloride 101, CO2 24, BUN 11, creatinine 0.9. Liver enzymes within normal limits, d-dimer was positive at 418 , initial troponin negative. She didn't undergo a CTA of the chest which was a suboptimal bolus to evaluate for PE but otherwise unremarkable. Patient does have a history of a brother with congenital aortic stenosis requiring 3 aortic valve replacements. Quadrant to the patient, she has had a stuffy nose recently but denies any fever or chills at home. Denies any recent contact with anyone who has been sick. Chest x-ray here did not reveal any acute process. Temperature 102.3 on arrival here. Blood pressure 126/60 with a heart rate of 120 at that time 95% on room air. Heart rate this morning in the low 100s, 95/55 blood pressure. Currently afebrile. White blood cell count 14 , hemoglobin 10, platelet count 220. Sodium 138, potassium 3.7, BUN 10, creatinine 0.8. Troponin 0.012. Influenza A and B are negative. At the time of my examination this morning, patient does complain of some mild chest discomfort, increases in severity on palpation of the chest wall. 04/12/2018 Patient was seen and examined this morning, feeling much better overall. Had a headache earlier, denies any chest discomfort today. Blood pressure 102/50 with a heart rate in the 90s, temperature 98.8, 99% on room air. Continues to run temperatures, white blood cell count today is up to 17.5, hemoglobin 9.7, platelet count 192. CT of the abdomen and pelvis was performed which reveals left sided polynephritis. There is an early developing 1.3 cm upper pole renal abscess. Moderate pelvic free fluid may be physiologic. Some of this fluid may be tracking down from the inflammation higher up in the abdomen. If clinically indicated, pelvic ultrasound could provide better assessment of the ovaries and adnexal structures. Objective - Vital Signs Vital signs: Vital Signs Temp 98.8 F 04/12/18 08:00 Pulse 98 04/12/18 11:11 Resp 16 04/12/18 11:11 BP 102/55 04/12/18 11:11 Pulse Ox 99 04/12/18 11:11 Intake & Output 04/11/18 04/12/18 04/12/18 18:59 06:59 18:59 Intake Total 969 475 435 Balance 969 475 435 Intake: Intake, IV Titration 525 475 75 Amount 0.9% NaCl with KCl 20 Meq 525 375 75 /l 1,000 ml @ 75 mls/hr IV .[id number] [facility] Rx#: [id number] Ampicillin-Sulbactam 3 gm 100 In Sodium Chloride 0.9% 100 ml @ 100 mls/hr IVPB Q6HR [facility] Rx#:[id number] Oral 444 360 Other: # Voids 2 1 - Exam PHYSICAL EXAMINATION: HEENT: Head is atraumatic, normocephalic. Pupils equal, round. Neck is supple. There is no elevated jugular venous pressure. HEART EXAMINATION: Heart S1, S2 normal. No murmur or gallop heard. CHEST EXAMINATION: Lungs are clear to auscultation and precussion. Positive chest wall tenderness is noted on palpation and with deep breathing. ABDOMEN: Soft, mild generalized tenderness . Bowel sounds are heard. No organomegaly noted. EXTREMITIES: 2+ peripheral pulses with no evidence of peripheral edema and no calf tenderness noted. NEUROLOGIC patient is awake, alert and oriented -3. . - Labs CBC & Chem 7: 04/12/18 05:52 04/12/18 05:52 Labs: Abnormal Lab Results - Last 24 Hours (Table) 04/12/18 04/12/18 04/12/18 Range/Units 05:52 05:52 05:52 WBC 17.5 H (4.0-11.0) k/uL RBC 3.48 L (3.80-5.40) m/uL Hgb 9.7 L (11.4-16.0) gm/dL Hct 29.6 L (34.0-46.0) % Neutrophils # 15.1 H (1.3-7.7) k/uL INR 1.2 H (<1.2) Sodium 135 L (137-145) mmol/L Carbon Dioxide 18 L (22-30) mmol/L Calcium 8.2 L (8.4-10.2) mg/dL AST 13 L (14-36) U/L C-Reactive Protein 227.9 H (<10.0) mg/L Total Protein 5.2 L (6.3-8.2) g/dL Albumin 2.7 L (3.5-5.0) g/dL Microbiology - Last 24 Hours (Table) 04/11/18 05:01 Blood Culture - Preliminary Blood No Growth after 24 hours Assessment and Plan Plan: Assessment and plan #1 symptoms of left-sided chest discomfort, atypical for acute coronary syndrome , somewhat pleuritic in nature, rule out possible myocarditis. CTA of the chest inconclusive for PE #2 sepsis, temperature 102.3, blood cultures have been ordered, patient currently on IV antibiotics. Rule out possible viral illness. #3 exercise-induced asthma as a child Plan CRP came back at 70, went up to 227, sed rate 28, CT of the abdomen and pelvis revealed findings most compatible with left sided polynephritis there is an early developing 1.3 cm upper pole renal abscess. Moderate pelvic free fluid may be physiologic some of this fluid tracking down from the inflammation higher up in the abdomen if clinically indicated pelvic ultrasound could provide better assessment of the ovaries and adnexal structures. Recommend surgical evaluation. DNP note has been reviewed, I agree with a documented findings and plan of care. Patient was seen and examined.
[2018-04-12] MEDS: ACETAMINOPHEN TAB 325 MG TAB PO PRN (19:44)
[2018-04-13] MEDS: AMPICILLIN-SULBACTAM 3 GM in SODIUM CHLORIDE 0.9% 100 ML IVPB SCH ×4 (05:33→23:08)
[2018-04-13] MEDS: KETOROLAC 30 MG/ML 1 ML VIAL IVP PRN (06:54)
[2018-04-13 06:57] LABS: HCT 28.4 % (34.0-46.0); HGB 9.3 gm/dL (11.4-16.0); MCH 27.7 pg (25.0-35.0); MCHC 32.9 g/dL (31.0-37.0); MCV 84.4 fL (80.0-100.0); Mean Platelet Volume 7.4; Platelet Count 176 k/uL (150-450); RBC 3.37 m/uL (3.80-5.40); RDW 12.8 % (11.5-15.5); WBC 7.5 k/uL (4.0-11.0)
[2018-04-13 07:07] LABS: ALT 29 U/L (9-52); AST 20 U/L (14-36); Albumin 2.6 g/dL (3.5-5.0); Alkaline Phosphatase 65 U/L (38-126); Anion Gap 9 mmol/L; Blood Urea Nitrogen 6 mg/dL (7-17); Calcium 8.1 mg/dL (8.4-10.2); Carbon Dioxide 20 mmol/L (22-30); Chloride 107 mmol/L (98-107); Glucose 93 mg/dL (74-99); Sodium 136 mmol/L (137-145); Total Bilirubin 0.4 mg/dL (0.2-1.3); Total Protein 5.2 g/dL (6.3-8.2)
--- NOTE | 2018-04-13 11:16 | P.PN ---
Subjective Progress Note Date: 04/13/18 Principal diagnosis: pyelonephritis No chills tonight good appetite, no fever, no dysuria no hematuria Objective - Vital Signs Vital signs: Vital Signs Temp 97.3 F L 04/13/18 11:04 Pulse 93 04/13/18 11:05 Resp 18 04/13/18 11:05 BP 107/64 04/13/18 11:04 Pulse Ox 97 04/13/18 11:04 Intake & Output 04/12/18 04/13/18 04/13/18 18:59 06:59 18:59 Intake Total 757 118 Balance 757 118 Weight 67.9 kg Intake: Intake, IV Titration 175 Amount 0.9% NaCl with KCl 20 Meq 75 /l 1,000 ml @ 75 mls/hr IV .[id number] [facility] Rx#: [id number] Ampicillin-Sulbactam 3 gm 100 In Sodium Chloride 0.9% 100 ml @ 100 mls/hr IVPB Q6HR [facility] Rx#:[id number] Oral 582 118 Other: # Voids 1 1 - Exam gen:alert and oriented lungs:clear to auscultation heart:s1s2 abdomen:soft and depressible,non tender ext:no edema - Labs CBC & Chem 7: 04/13/18 06:41 04/13/18 06:41 Labs: Abnormal Lab Results - Last 24 Hours (Table) 04/13/18 04/13/18 Range/Units 06:41 06:41 RBC 3.37 L (3.80-5.40) m/uL Hgb 9.3 L (11.4-16.0) gm/dL Hct 28.4 L (34.0-46.0) % Sodium 136 L (137-145) mmol/L Carbon Dioxide 20 L (22-30) mmol/L BUN 6 L (7-17) mg/dL Calcium 8.1 L (8.4-10.2) mg/dL Total Protein 5.2 L (6.3-8.2) g/dL Albumin 2.6 L (3.5-5.0) g/dL Microbiology - Last 24 Hours (Table) 04/11/18 05:01 Blood Culture - Preliminary Blood No Growth after 48 hours Assessment and Plan (1) Pyelonephritis Narrative/Plan: IV Unasyn Responding Current Visit: Yes Status: Acute Code(s): N12 - TUBULO-INTERSTITIAL NEPHRITIS, NOT SPCF ACUTE OR CHRONIC SNOMED Code(s): 42016548 (2) SIRS (systemic inflammatory response syndrome) Narrative/Plan: Resolved Current Visit: Yes Status: Acute Code(s): R65.10 - SIRS OF NON-INFECTIOUS ORIGIN W/O ACUTE ORGAN DYSFUNCTION SNOMED Code(s): 290328771 (3) Chest pain Narrative/Plan: Secondary to costochondritis improving Current Visit: Yes Status: Acute Code(s): R07.9 - CHEST PAIN, UNSPECIFIED SNOMED Code(s): 85158281
--- NOTE | 2018-04-13 11:35 | PN ---
PROGRESS NOTE DATE OF SERVICE: 04/13/2018 REASON FOR FOLLOWUP: Left-sided pyelonephritis. INTERVAL HISTORY: The patient is afebrile. She is breathing comfortably. Denies having any chest pain, no shortness of breath or cough. The pain to the left flank area has improved. No nausea, vomiting or diarrhea. PHYSICAL EXAMINATION: On examination, blood pressure is 118/68 with a pulse of 117, temperature of 98. She is 96% on room air. General description is a young female lying in bed in no distress. RESPIRATORY SYSTEM: Unlabored breathing, clear to auscultation. HEART: S1, S2. Regular rate and rhythm. ABDOMEN: Soft, no tenderness. No flank tenderness. EXTREMITIES: No edema of feet. LABS: Hemoglobin 9.3, white count 7.5, BUN of 6, creatinine 0.70. Blood cultures have been negative . No urine culture during this admission. DIAGNOSTIC IMPRESSION AND PLAN: Patient admitted to the hospital with sepsis, source is left-sided pyelonephritis. CT did not show there was any evidence of a drainable abscess. The patient's white count has normalized. We will try to obtain urine culture that was done at [facility]. Recommend keeping the patient on IV antibiotics for at least 24 hours before discharging home on oral hopefully tomorrow. Once again, the culture available from [facility]. Mother was present at bedside. All her questions and concerns were answered. MMODL / IJN: [id number] /
[2018-04-13] MEDS: ACETAMINOPHEN TAB 325 MG TAB PO PRN (11:46)
[2018-04-13] MEDS: 0.9% NACL WITH KCL 20 MEQ/L 1,000 ML IV SCH ×2 (11:47→21:48)
--- NOTE | 2018-04-13 14:55 | P.PN ---
Subjective Progress Note Date: 04/13/18 This is a pleasant 22-year-old female with history of childhood exercise-induced asthma, nonsmoker, no alcohol use, who was transferred here from [facility], patient presented there with symptoms of fairly sudden onset of left-sided chest pain, patient states that initially the pain would worsen if she would take a deep breath, or if she would press on the chest wall. She continues to have some discomfort this morning that she is rating at about a 5, she does state that if she palpates the chest is significantly worse. Patient did have a temperature at [facility] of 102, her initial EKG showed a sinus tachycardia with heart rate of 110. Initial white blood cell count 13.8, hemoglobin 14.3, hematocrit 42.1, platelets 363. Sodium 133, potassium 4, chloride 101, CO2 24, BUN 11, creatinine 0.9. Liver enzymes within normal limits, d-dimer was positive at 418 , initial troponin negative. She didn't undergo a CTA of the chest which was a suboptimal bolus to evaluate for PE but otherwise unremarkable. Patient does have a history of a brother with congenital aortic stenosis requiring 3 aortic valve replacements. Quadrant to the patient, she has had a stuffy nose recently but denies any fever or chills at home. Denies any recent contact with anyone who has been sick. Chest x-ray here did not reveal any acute process. Temperature 102.3 on arrival here. Blood pressure 126/60 with a heart rate of 120 at that time 95% on room air. Heart rate this morning in the low 100s, 95/55 blood pressure. Currently afebrile. White blood cell count 14 , hemoglobin 10, platelet count 220. Sodium 138, potassium 3.7, BUN 10, creatinine 0.8. Troponin 0.012. Influenza A and B are negative. At the time of my examination this morning, patient does complain of some mild chest discomfort, increases in severity on palpation of the chest wall. 04/12/2018 Patient was seen and examined this morning, feeling much better overall. Had a headache earlier, denies any chest discomfort today. Blood pressure 102/50 with a heart rate in the 90s, temperature 98.8, 99% on room air. Continues to run temperatures, white blood cell count today is up to 17.5, hemoglobin 9.7, platelet count 192. CT of the abdomen and pelvis was performed which reveals left sided polynephritis. There is an early developing 1.3 cm upper pole renal abscess. Moderate pelvic free fluid may be physiologic. Some of this fluid may be tracking down from the inflammation higher up in the abdomen. If clinically indicated, pelvic ultrasound could provide better assessment of the ovaries and adnexal structures. 04/13/2018 Patient seen and examined this morning, feeling significantly better overall. White blood cell count down to 7.5 today. Have one temperature around 8 PM last night of 99.5 and has been afebrile since then. Objective - Vital Signs Vital signs: Vital Signs Temp 97.3 F L 04/13/18 11:04 Pulse 93 04/13/18 11:05 Resp 18 04/13/18 11:05 BP 107/64 04/13/18 11:04 Pulse Ox 97 04/13/18 11:04 Intake & Output 04/12/18 04/13/18 04/13/18 18:59 06:59 18:59 Intake Total 757 1066 Balance 757 1066 Weight 67.9 kg Intake: Intake, IV Titration 175 Amount 0.9% NaCl with KCl 20 Meq 75 /l 1,000 ml @ 75 mls/hr IV .[id number] [facility] Rx#: [id number] Ampicillin-Sulbactam 3 gm 100 In Sodium Chloride 0.9% 100 ml @ 100 mls/hr IVPB Q6HR [facility] Rx#:[id number] Oral [id number] 1066 Other: # Voids 1 1 - Exam PHYSICAL EXAMINATION: HEENT: Head is atraumatic, normocephalic. Pupils equal, round. Neck is supple. There is no elevated jugular venous pressure. HEART EXAMINATION: Heart S1, S2 normal. No murmur or gallop heard. CHEST EXAMINATION: Lungs are clear to auscultation and precussion. Positive chest wall tenderness is noted on palpation and with deep breathing. ABDOMEN: Soft, mild generalized tenderness . Bowel sounds are heard. No organomegaly noted. EXTREMITIES: 2+ peripheral pulses with no evidence of peripheral edema and no calf tenderness noted. NEUROLOGIC patient is awake, alert and oriented -3. . - Labs CBC & Chem 7: 04/13/18 06:41 04/13/18 06:41 Labs: Abnormal Lab Results - Last 24 Hours (Table) 04/13/18 04/13/18 Range/Units 06:41 06:41 RBC 3.37 L (3.80-5.40) m/uL Hgb 9.3 L (11.4-16.0) gm/dL Hct 28.4 L (34.0-46.0) % Sodium 136 L (137-145) mmol/L Carbon Dioxide 20 L (22-30) mmol/L BUN 6 L (7-17) mg/dL Calcium 8.1 L (8.4-10.2) mg/dL Total Protein 5.2 L (6.3-8.2) g/dL Albumin 2.6 L (3.5-5.0) g/dL Microbiology - Last 24 Hours (Table) 04/11/18 05:01 Blood Culture - Preliminary Blood No Growth after 48 hours Assessment and Plan Plan: Assessment and plan #1 symptoms of left-sided chest discomfort, atypical for acute coronary syndrome , somewhat pleuritic in nature, rule out possible myocarditis. CTA of the chest inconclusive for PE #2 sepsis, temperature 102.3, blood cultures have been ordered, patient currently on IV antibiotics. . #3 exercise-induced asthma as a child #4 polynephritis Plan From cardiology's perspective, we will follow this patient with you now on an as -needed basis only, please and had stayed call with any questions. We will make her a follow-up appointment in the office post discharge. DNP note has been reviewed, I agree with a documented findings and plan of care. Patient was seen and examined.
[2018-04-14] MEDS: ACETAMINOPHEN TAB 325 MG TAB PO PRN (00:42)
[2018-04-14] MEDS: AMPICILLIN-SULBACTAM 3 GM in SODIUM CHLORIDE 0.9% 100 ML IVPB SCH ×2 (06:02→11:04)
[2018-04-14 06:35] LABS: Basophils % (A) 0 %; Eosinophils # (A) 0.1 k/uL (0-0.7); Eosinophils % (A) 2 %; HGB 9.8 gm/dL (11.4-16.0); Lymphocytes # (A) 1.3 k/uL (1.0-4.8); Lymphocytes % (A) 26 %; MCH 27.5 pg (25.0-35.0); MCHC 32.7 g/dL (31.0-37.0); MCV 84.4 fL (80.0-100.0); Mean Platelet Volume 6.9; Monocytes # (A) 0.5 k/uL (0-1.0); Monocytes % (A) 9 %; Neutrophils # (A) 3.1 k/uL (1.3-7.7); Neutrophils % (A) 59 %; Platelet Count 206 k/uL (150-450); RBC 3.55 m/uL (3.80-5.40); RDW 13.1 % (11.5-15.5); WBC 5.2 k/uL (4.0-11.0)
[2018-04-14 06:50] LABS: Anion Gap 10 mmol/L; Blood Urea Nitrogen 3 mg/dL (7-17); Calcium 8.5 mg/dL (8.4-10.2); Carbon Dioxide 25 mmol/L (22-30); Chloride 107 mmol/L (98-107); Glucose 77 mg/dL (74-99); Sodium 142 mmol/L (137-145)
--- NOTE | 2018-04-14 09:36 | P.PN ---
Subjective Progress Note Date: 04/14/18 Principal diagnosis: Pyelonephritis Good appetite no chills no dysuria no hematuria, Objective - Vital Signs Vital signs: Vital Signs Temp 98.2 F 04/14/18 08:00 Pulse 79 04/14/18 08:00 Resp 17 04/14/18 08:00 BP 118/77 04/14/18 08:00 Pulse Ox 96 04/14/18 08:00 Intake & Output 04/13/18 04/14/18 04/14/18 18:59 06:59 18:59 Intake Total 1303 480 Output Total 1100 Balance 1303 -620 Weight 67.5 kg Intake: Oral 1303 480 Output: Urine 1100 Other: Voiding Method Toilet Toilet # Voids 1 1 2 - Exam gen:alert and oriented lungs:clear to auscultation heart:s1s2 abdomen:soft and depressible,non tender ext:no edema - Labs CBC & Chem 7: 04/14/18 06:22 04/14/18 06:22 Labs: Abnormal Lab Results - Last 24 Hours (Table) 04/14/18 04/14/18 Range/Units 06:22 06:22 RBC 3.55 L (3.80-5.40) m/uL Hgb 9.8 L (11.4-16.0) gm/dL Hct 30.0 L (34.0-46.0) % BUN 3 L (7-17) mg/dL Microbiology - Last 24 Hours (Table) 04/11/18 05:01 Blood Culture - Preliminary Blood No Growth after 72 hours 04/12/18 18:27 Urine Culture - Preliminary Urine,Clean Catch Assessment and Plan (1) Pyelonephritis Narrative/Plan: On IV Unasyn Leukocytosis improving Despite fever last night Current Visit: Yes Status: Acute Code(s): N12 - TUBULO-INTERSTITIAL NEPHRITIS, NOT SPCF ACUTE OR CHRONIC SNOMED Code(s): 01922902 (2) SIRS (systemic inflammatory response syndrome) Narrative/Plan: Resolved Current Visit: Yes Status: Acute Code(s): R65.10 - SIRS OF NON-INFECTIOUS ORIGIN W/O ACUTE ORGAN DYSFUNCTION SNOMED Code(s): 768145675 (3) Chest pain Narrative/Plan: Improved Current Visit: Yes Status: Acute Code(s): R07.9 - CHEST PAIN, UNSPECIFIED SNOMED Code(s): 18704906 Plan: Awaiting plans by Dr. Viera. Patient might need to stay another day until she is off her bra for 24 hours
[2018-04-14] MEDS: 0.9% NACL WITH KCL 20 MEQ/L 1,000 ML IV SCH (11:04)
[2018-04-14 12:07] VITALS: BP 120/77; PULSE 81; RESP 18; TEMP 97
--- NOTE | 2018-04-14 13:15 | P.DS ---
Providers Date of admission: 04/11/18 02:52 Expected date of discharge: 04/14/18 Attending physician: Beth Sanchez DO Consults: 04/11/18 03:57 Consult Physician Routine Consulting Provider: Sha Herrera Consult Reason/Comments: chest pain Do you want consulting provider notified?: Yes 04/11/18 16:31 Consult Physician Routine Consulting Provider: Laila Viera Consult Reason/Comments: sirs Do you want consulting provider notified?: Yes Primary care physician: Nithin Torres MD - Discharge Diagnosis(es) (1) Pyelonephritis Patient to be discharged on Cipro Follow-up with infectious disease in 1 week Current Visit: Yes Status: Acute (2) SIRS (systemic inflammatory response syndrome) Current Visit: Yes Status: Acute (3) Chest pain Current Visit: Yes Status: Acute Hospital Course: 22-year-old female that was admitted with symptoms of shortness of breath and nausea. Patient had fever one evaluated in the ER. Also describing chills. UA showed 18 WBCs. We did order a CT of the abdomen and pelvis which showed possible abscess around the kidney which was not drainable. Infectious disease was consulted patient had been on Unasyn. Her white count has improved. I did encourage patient to stay one more day because she did spike a fever last night. But patient was to go home. Patient will be discharged home on oral Cipro. All discussed with infectious disease. Condition at discharge stable Seamus Viera Discharge time 34 minutes Patient Condition at Discharge: Stable Plan - Discharge Summary Discharge Rx Participant: No New Discharge Prescriptions: New Ciprofloxacin HCl [Cipro] 500 mg PO Q12HR #28 tablet No Action Fluticasone Nasal [place] [Flonase Nasal [place]] 1 spray EA NOSTRIL DAILY Norgestimate-Ethinyl Estradiol [Tri-Sprintec Tablet] 1 tab PO DAILY Discharge Medication List Fluticasone Nasal [place] [Flonase Nasal [place]] 1 spray EA NOSTRIL DAILY 04/11/18 [History] Norgestimate-Ethinyl Estradiol [Tri-Sprintec Tablet] 1 tab PO DAILY 04/11/18 [ History] Ciprofloxacin HCl [Cipro] 500 mg PO Q12HR #28 tablet 04/14/18 [Rx] Follow up Appointment(s)/Referral(s): Nithin Torres MD [Primary Care Provider] - 04/19/18 1:45 pm Laila Viera MD [STAFF PHYSICIAN] - 04/21/18 11:15 am Patient Instructions/Handouts: Kidney Infection (DC), Complications of Infection (GEN) Activity/Diet/Wound Care/Special Instructions: Continue diet as tolerated. fluids are encouraged. Finish antibiotic in its entirety. Follow up with physician in one week for kidney abscess. Eat yogurt or take a probiotic to prevent yeast infection and or stomach upset with antibiotic. Call physicians office with any questions comments concerns or worsening returning symptoms; fever 101.1 or higher, returned pain, or issues with urination.
--- NOTE | 2018-04-14 13:39 | PN ---
PROGRESS NOTE DATE OF SERVICE: 04/14/2018 REASON FOR FOLLOWUP: Left-sided pyelonephritis with Klebsiella. INTERVAL HISTORY: The patient did spike a fever last night of 101.6; however, the patient is afebrile since then. The patient is feeling much better. She is breathing comfortably. Denies having any chest pain, shortness of breath, or cough. No abdominal pain, no diarrhea. The patient is insisting on going home. PHYSICAL EXAMINATION: On examination, blood pressure 120/77 with a pulse of 81, temperature 97, T-max 101.6. She is 97% on room air. General description is a young female, up in the room in no distress RESPIRATORY SYSTEM: Unlabored breathing, clear to auscultation. HEART: S1, S2. Regular rate and rhythm. ABDOMEN: Soft, no left CVA tenderness. LABS: Hemoglobin 9.8, white count 5.2 with BUN of 3, creatinine 0.66. Blood and urine culture here has been negative. The urine culture done at the [facility] was positive for Klebsiella, that was sensitive. DIAGNOSTIC IMPRESSION AND PLAN: Patient with left-sided severe pyelonephritis. Patient has been advised to stay in hospital for another 24 hours to make sure she is afebrile for 24 before she goes home. However, the patient is really insisting on going home. Antibiotic switched over to Cipro 500 mg twice a day for 2 weeks with close outpatient followup. Patient has been advised if any recurrence of fever after she goes home to let us know right away. She will likely need an imaging study at the end of therapy to make sure complete resolution of the left-sided pyelonephritis and no abscess formation. This was explained to the patient and the mother in layman's terms. MMODL / IJN: [id number] / MTDD
--- NOTE | 2018-04-19 14:52 | CDI ---
Last Revision, October 2017 Documentation Clarification Form Date: 04/19/18 From: Prema Maravilla Phone: If you have a question, please contact Omaira Reeves at [phone] between 8am and 5pm. Admit Date: 04/11/2018 2:52:00 AM Patient Name: Maria D Loera Visit Number: [id number] Discharge Date: 04/14/18 ATTENTION: The Clinical Documentation Specialists (CDI) and [facility] Coding Staff appreciate your assistance in clarifying documentation. Please respond to the clarification below the line at the bottom and electronically sign. The CDI & [facility] Coding staff will review the response and follow-up if needed. Please note: Queries are made part of the Legal Health Record. If you have any questions, please contact the author of this message via ITS. Dr. Glen Vazquez Sepsis is documented in Dr. Viera's consult note and Dr. Albrceht's consult note and in progress notes from 04/12 and 04/13. But SIRS is documented in your discharge summary. History/Risk Factors: Patient was admitted with acute pyelonephritis and chest pain. Clinical Indicators: leukocytosis, fever and tachycardia. WBC/Left Shift: 04/11 - 14,000/12.3; 04/12 - 17,500/15.1 Lactic acid: 0.5 Blood cultures: No growth after 144 hours. Vitals signs on admission: T. 102.3, P. 121, R. 28, BP 127/60 Antibiotics: IV ampicillin, IV azithromycin IV Bolus: Sodium chloride 1,000 mls @ 999 mls/hr Please clarify if these findings signify one of the following conditions AND whether the condition is Present on admission. Sepsis SIRS, without underlying infectious process Sepsis ruled out Other, please specify Unable to determine Pyelonephritis with sepsis MTDD
== END 2018-04-14 13:36 | disposition home or self-care (01) | DRG 871 ==
LOC: EC 02:14 → 6SEL 02:52 → 6PED 04-14 00:17
PROVIDERS: ADMIT Internal Medicine; ATTEND Internal Medicine
DX: A41.50 Gram-negative sepsis, unspecified (principal); N15.1 Renal and perinephric abscess; N10 Acute pyelonephritis; J30.2 Other seasonal allergic rhinitis; M94.0 Chondrocostal junction syndrome [Tietze]; N94.6 Dysmenorrhea, unspecified; Z83.3 Family history of diabetes mellitus; Z82.49 Family history of ischemic heart disease and other diseases of the circulatory system
CPT/HCPCS: 71045; 74177; 80048; 80053; 81001; 83605; 83735; 84443; 84484; 85025; 85027; 85610; 85652; 86140; 87040; 87086; 87502; 93005; 93306; 96360; 96374; 99285